=== PATIENT | male | born 1940 | race Caucasian/White ===

== ENCOUNTER → 2020-08-31 | Outpatient (CLI) | payer MEDICARE ==
[2020-08-31 09:49] LABS: HEMATOCRIT 41.7 % (42.0-52.0); HEMOGLOBIN 13.8 g/dl (13.5-17.5); MEAN CORPUSCULAR HEMOGLOBIN 28.6 pg (27.0-33.0); MEAN CORPUSCULAR HGB CONC 33.1 g/dl (32.0-36.5); MEAN CORPUSCULAR VOLUME 86.5 fl (80.0-96.0); PLATELET COUNT, AUTOMATED 230 10^3/uL (150-450); RED BLOOD COUNT 4.82 10^6/uL (4.30-6.10); WHITE BLOOD COUNT 4.8 10^3/uL (4.0-10.0)
[2020-08-31 10:06] LABS: INR 1.11; PROTHROMBIN TIME 14.5 SECONDS (12.5-14.3)
[2020-08-31 10:22] LABS: ERYTHROCYTE SEDIMENTATION RATE 5 mm/hr (0-20)
--- NOTE | 2020-08-31 10:22 | ECGEPIP ---
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
[2020-08-31 10:32] LABS: ALBUMIN 3.8 GM/DL (3.2-5.2); BILIRUBIN,TOTAL 0.7 MG/DL (0.2-1.0); CALCIUM LEVEL 8.6 MG/DL (8.8-10.2); CREATININE FOR GFR 1.42 MG/DL (0.70-1.30); GLOMERULAR FILTRATION RATE 51.3 (>42); POTASSIUM SERUM 4.1 MEQ/L (3.5-5.1)
--- NOTE | 2020-08-31 12:43 | REP ---
INDICATION: LEFT KNEE OSTEOARTHRITIS COMPARISON: None. TECHNIQUE: PA and lateral. FINDINGS: The mediastinum and cardiac silhouette are normal. The lung zee are clear and without acute consolidation, effusion, or pneumothorax. The skeletal structures are intact and normal. IMPRESSION: No acute cardiopulmonary process. <Electronically signed by Josef Martinez > 08/31/20 [id number]
== END ==
LOC: M LAB 08:29
PROVIDERS: ATTEND Orthopaedic Surgery
DX: Z01.818 Encounter for other preprocedural examination (principal); M17.12 Unilateral primary osteoarthritis, left knee

== ENCOUNTER → 2020-09-11 | Outpatient (CLI) ==
[~2020-09-11] MED LIST: CYCL-707 PO; ECOT81TA5 PO; FLOM0.4C39 PO; LISI20TA35 PO; NAPR-885 PO; TRAM50TA2 PO; VITA1CAP25 PO
== END ==
LOC: M LABSMTC 08:28
PROVIDERS: ATTEND Anesthesiology
DX: Z01.818 Encounter for other preprocedural examination (principal); Z20.828 Contact with and (suspected) exposure to other viral communicable diseases

== ENCOUNTER 2020-09-16 06:01 | Inpatient (IN) | payer MEDICARE ==
--- NOTE | 2020-09-14 13:36 | HPE ---
HISTORY AND PHYSICAL DATE OF ADMISSION: 09/16/2020 CHIEF COMPLAINT: Left knee pain. HISTORY OF PRESENT ILLNESS: Darryn is a pleasant 79-year-old male with progressively worsening left knee pain and stiffness. He has failed to improve with conservative treatment. He is elected for surgery for his continued symptoms. He has pain with weightbearing activities and his activities of daily living. X-rays of his knee are notable for advanced osteoarthritis of the left knee joint. He has consented for a left total knee arthroplasty by Dr. Neal Black. Medical optimization was performed by Michelle Stephenson. ALLERGIES: No known allergies. CURRENT MEDICATIONS: 1. Tamsulosin HCL 4 mg at bedtime. 2. Lisinopril once a day. 3. Aspirin 81 mg once a day. 4. Naproxen 500 mg as needed twice a day. 5. Cyclobenzaprine 10 mg as needed two times a day. 6. Vitamin D 1.25 mg once a month. PAST MEDICAL HISTORY: 1. High blood pressure. 2. History of prostate cancer. PAST SURGICAL HISTORY: 1. Cataracts. SOCIAL HISTORY: This gentleman is retired, does not smoke and occasionally drinks alcohol. FAMILY HISTORY: Noncontributory. REVIEW OF SYSTEMS: This patient denies chest pain, heart palpitations, cough, wheezing, difficulty breathing and shortness of breath. He denies abdominal pain, nausea, vomiting, diarrhea or constipation. He denies a recent upper respiratory infection or urinary tract infection symptoms. He does complain of persistent pain in the left knee. PHYSICAL EXAMINATION: GENERAL: He is well-developed, well-nourished in no acute distress alert male. He ambulates with a moderate limp favoring his left lower extremity. He is not using assistive devices. VITAL SIGNS: He is 5 feet and 9 1/2 inches, weighs 232.2 pounds, temperature 97.4, blood pressure 128/78, pulse of 83, respirations are 17. NECK: Supple without adenopathy or jugular venous distention. LUNGS: Clear to auscultation without rales or wheeze. HEART: Regular rate and rhythm. ABDOMEN: Bowel sounds were present. EXTREMITIES: Examination of the knee revealed intact skin. He had decreased range of motion due to pain and stiffness. The limb is neurovascularly intact. LABORATORY DATA: EKG showed sinus rhythm at 83 beats per minute. Chest x-ray showed no acute cardiopulmonary disease processes. Pro-Time was 14.5, INR was 1.11. CBC showed a hematocrit of 41.7, otherwise within normal limits with a sed rate of 5. Glucose 103, BUN 25, creatinine 1.42. Sodium 138, potassium 4.1. IMPRESSION: Symptomatic osteoarthritis of the left knee joint. PLAN: Consented for a left total knee arthroplasty by Dr. Neal Black.
[~2020-09-16] VITALS: Ht 180.3 cm; Wt 103.4 kg
[~2020-09-16 06:01] MED LIST changes: +LR 1,000 ML IV ONE; +ceFAZolin SOD 1 GM in D5W MINI-BAG PLUS 50 ML IV ONE; +ceFAZolin SOD 2 GM in IV 1 EA IV ONE
[2020-09-16] MEDS ORDERED: fentaNYL 100 MCG/2 ML INJECTION (J3010) IV PRN ×2 (07:01→10:00)
[2020-09-16] MEDS ORDERED: MIDAZOLAM INJ 2MG/2ML VIAL (J2250 PER 1MG) IV PRN (07:01)
[2020-09-16] MEDS ORDERED: BUPIVACAINE HCL 0.25% 10ML VIAL As Ordered ONE (07:10)
[2020-09-16] MEDS ORDERED: ceFAZolin 1GM VIAL (J0690 PER 500MG) As Ordered ONE (07:10)
[2020-09-16] MEDS ORDERED: EPINEPHrine INJ 1 MG/ML 1ML AMP As Ordered ONE (07:10)
[2020-09-16] MEDS ORDERED: BUPIVACAINE LIPOSOME/PF 1.3% 20ML VIAL (13.3MG/ML)(EXPAREL)(C9290 PER1MG) As Ordered ONE (07:10)
[2020-09-16] MEDS ORDERED: TRANEXAMIC ACID 100 MG/ML 10ML VIAL As Ordered ONE (07:10)
[2020-09-16] MEDS ORDERED: fentaNYL 100 MCG/2 ML INJECTION (J3010) As Ordered ONE (07:13)
[2020-09-16] MEDS ORDERED: propofoL 500 MG/50 ML VIAL As Ordered ONE (07:13)
[2020-09-16] MEDS ORDERED: ONDANSETRON 4MG/2ML VIAL As Ordered ONE (07:14)
[2020-09-16] MEDS ORDERED: LIDOCAINE 2% 100MG/5ML SDV (FOR ANES.) As Ordered ONE (07:14)
[2020-09-16] MEDS ORDERED: dexameTHASONE 10MG/1ML VIAL PRES.FREE (J1100 PER 1MG) XX ONE (07:30)
[2020-09-16] MEDS ORDERED: EPINEPHrine INJ 1 MG/ML 1ML AMP XX ONE (07:30)
[2020-09-16] MEDS ORDERED: ROPIvacaine 0.5% 30ML INJECTION (J2795 PER 1MG) XX ONE (07:30)
--- NOTE | 2020-09-16 07:56 | IPN ---
PROGRESS NOTE DATE: 09/16/2020 Patient seen and examined. He wishes to go ahead with a left total knee arthroplasty. He was reconsented. He understands the nature of this, the risks of bleeding, infection, damage to nerve, vessels, persistent pain, wear, loosening, blood clots, medical problems, , among others. A preoperative clearance was obtained.
[2020-09-16] MEDS ORDERED: PHENYLephrine HCL 500 MCG/5 ML (100MCG/ML) SYRINGE (J2370) As Ordered ONE ×2 (08:26→08:56)
[2020-09-16] MEDS ORDERED: ePHEDrine SULFATE 25 MG/5 ML(5MG/ML) SYRINGE As Ordered ONE (08:36)
[2020-09-16] MEDS ORDERED: propofoL 200 MG/20 ML VIAL As Ordered ONE ×2 (09:07→11:07)
[2020-09-16] MEDS ORDERED: ACETAMINOPHEN TAB 650MG DOSE (2X325MG) PO PRN (10:00)
[2020-09-16] MEDS ORDERED: MORPHINE 4 MG/ML 1ML VIAL/SYRINGE (J2270) IV PRN (10:00)
[2020-09-16] MEDS ORDERED: oxyCODONE 5MG TAB PO PRN (10:00)
[2020-09-16] MEDS ORDERED: ACETAMINOPHEN 500 MG TAB PO ONE (10:00)
[2020-09-16] MEDS ORDERED: PERCOCET 5MG/325MG TAB PO PRN (10:00)
[2020-09-16] MEDS ORDERED: MORPHINE 2 MG/ML 1ML VIAL (J2270) IV PRN (10:00)
[2020-09-16] MEDS ORDERED: LR 1,000 ML IV SCH ×2 (10:00)
[2020-09-16] MEDS ORDERED: ONDANSETRON 4MG/2ML VIAL IV PRN ×2 (10:00)
--- NOTE | 2020-09-16 10:06 | REP ---
INDICATION: POST OP IN PACU COMPARISON: None. TECHNIQUE: There are two views. FINDINGS: There is a total knee arthroplasty. The components are tightly applied in satisfactory positions and alignment. Skin tram are incidentally noted. IMPRESSION: Negative . <Electronically signed by Dwayne Christie > 09/16/20 1002
[2020-09-16 11:00] VITALS: BP 148/86
[2020-09-16 11:30] VITALS: BP 152/85
[2020-09-16 12:30] VITALS: BP 155/91
[2020-09-16 12:34] LABS: HEMATOCRIT 36.7 % (42.0-52.0); MEAN CORPUSCULAR HEMOGLOBIN 28.6 pg (27.0-33.0); MEAN CORPUSCULAR HGB CONC 32.7 g/dl (32.0-36.5); MEAN CORPUSCULAR VOLUME 87.4 fl (80.0-96.0); PLATELET COUNT, AUTOMATED 190 10^3/uL (150-450); WHITE BLOOD COUNT 5.8 10^3/uL (4.0-10.0)
--- NOTE | 2020-09-16 13:26 | RO ---
OPERATIVE NOTE DATE OF OPERATION: 09/16/2020 PREOPERATIVE DIAGNOSIS: Left knee osteoarthritis. POSTOPERATIVE DIAGNOSIS: Left knee osteoarthritis. PROCEDURE: Left total knee arthroplasty, Attune rotating platform, cruciate retaining, size 7 femur, size 7 tibia, 8 polyethylene, 38 patellar button. SURGEON: Neal Black M.D. BOTTOM PRECIPITATOR OPERATOR: MICHAELA Hdz ANESTHESIA: Spinal. ESTIMATED BLOOD LOSS: 50. COMPLICATIONS: None. PROCEDURE: The patient was taken to the operating room and placed in the supine position after spinal anesthesia was induced. The left lower extremity was prepped and draped in the usual sterile fashion. A timeout was performed and tourniquet was inflated. I then created a longitudinal incision over the anterior aspect of the knee and sharp dissection was carried down through subcutaneous tissue to perform a medial parapatellar arthrotomy per routine and with some difficulty was able to abram the patella. He had significant osteophytes and very hard bone noted. I did a medial release on the proximal tibia. I then used a canal initiating reamer on the femoral side followed by the intramedullary guide set at 5 degrees of valgus and a 9 mm cut. This was pinned in place and a distal femoral cut was made. The soft tissues were protected. I sized the femur to be a 7 and the drill holes were placed in the end of the femur and external rotation dialed in. The cutting block was secured and the remaining cuts were made again with some difficulty due to the very dense bone. I then prepared the tibia. Tibial alignment guide was placed in the appropriate amount of valgus and posterior slope and pinned it 4 mm off the low side which was the medial side and the proximal tibia cut was made protecting soft tissues. I then used a net fisher to remove soft tissue and osteophytes from either side of the knee. I did have to a little bit more medial release to improve the soft tissue balance and then used spacer blocks and was deciding between an 8 and a 10 thickness. The PCL was intact. I then prepared the sulcus cut on the femur with a saw and a guide. I prepared the tibia with a tibial tray size 7, drilled, broached. Trial components were placed. I had removed any remaining osteophytes from around the knee. I put the knee through a range of motion and the size 8 seemed to have excellent stability and alignment, full extension. I had taken an extra 2 mm off the distal femur due to a mild flexion contracture but we were able to get very good range of motion and good, stable knee with good alignment. I then free-hand cut the patella, removing about 7 mm of bone, sized to be a 38. The drill holes were placed. The drill holes placed at the end of the femur. The student assistant prepared the bone cement in modern technique. I removed the trial components, injected some Exparel and Marcaine into the posterior capsule, making sure to withdraw on the syringe so as not to involve the vessel. The remaining Exparel was placed around the knee. The surfaces were copiously irrigated and dried and cemented in the components, removed all excess bone cement, held the patella in place with a patellar clamp. I irrigated again copiously, placed the TXA deep in the wound and then repaired the deep layer with #1 Vicryl in interrupted fashion, running Stratafix suture, obtaining watertight closure. The patella tracked very well. I did do a final deep irrigation prior to final wound closure. The tourniquet was deflated once the cement had hardened. I irrigated, closed the subcu with 2-0 Vicryl and the skin with tram. A sterile dressing was applied. Tourniquet had been deflated. He was taken to the recovery room in stable condition. There were no known complications. The plan will be routine postop. The student assistant was instrumental in holding retractors and assisting in mixing the bone cement and assisting in wound closure.
[2020-09-16 14:30] VITALS: BP 130/72
[2020-09-16] MEDS ORDERED: traMADol 50 MG TAB PO PRN (14:45)
[2020-09-16] MEDS: ACETAMINOPHEN 500 MG TAB PO SCH ×2 (15:22→20:50)
[2020-09-16] MEDS: ceFAZolin SOD 2 GM in IV 1 EA IV SCH ×2 (15:23→23:04)
[2020-09-16 15:30] VITALS: BP 145/84
[2020-09-16 19:51] VITALS: BP 142/83
[2020-09-16] MEDS ORDERED: TAMSULOSIN 0.4 MG CAP PO SCH (21:00)
--- NOTE | 2020-09-16 22:33 | HPEPDOC ---
General Date of Admission Sep 16, 2020 at 06:01 Date of Service: Sep 16, 2020 Chief Complaint The patient is a 79-year-old male admitted with a reason for visit of Left Knee Osteoarthritis. Source: Patient History of Present Illness Consultation report; Consultation requested by orthopedics. Consultation for management of Medical comorbidities. HPI: this is a 79 year ol male admitted for elective left total knee replacement for advanced osteoarthritis. Surgery was uneventful. He is complaining of sharp throbbing ad at eh left knee about 4/10 in intensity, constant in nature with no radiation. He just got a pain med. No other complaints. Home Medications Scheduled Aspirin (Ecotrin) 81 Mg Tablet.dr, 81 MG PO DAILY for pain, (Reported) Cholecalciferol (Vitamin D3) (Vitamin D3) 1,250 Mcg Capsule, 1,250 MCG PO Q MONTH, (Reported) Lisinopril/Hydrochlorothiazide (Lisinopril-Hctz 20-12.5 mg Tab) 1 Each Tablet, 1 TAB PO DAILY, (Reported) Tamsulosin HCl (Flomax) 0.4 Mg Capsule, 0.4 MG PO DAILY, (Reported) Scheduled PRN Cyclobenzaprine HCl (Cyclobenzaprine HCl) 10 Mg Tablet, 10 MG PO BIDP PRN for MUSCLE SPASMS, (Reported) Naproxen (Naproxen) 500 Mg Tablet, 500 MG PO BID PRN for PAIN, (Reported) Tramadol HCl (Tramadol HCl) 50 Mg Tablet, 1 TAB PO TIDP PRN for pain, (Reported) Allergies Coded Allergies: No Known Allergies (Unverified , 09/07/20) Past Medical History Medical History Hypertension H/o Prostate cancer LUTS Obesity Surgical History Cataracts Family History Significant Family History: Cancer Mother and Maternal Aunt from Lung cancer Brother from prostatic cancer Social History * Smoker: Denies Alcohol: rarely Drugs: denies A-FIB/CHADSVASC A-FIB History Current/History of A-Fib/PAF?: No Review of Systems Constitutional: Denies: Chills, Fever, Night Sweats Eyes: Denies: Pain, Vision change ENT: Denies: Head Aches, Ear Pain, Dysphagia Skin: Denies: Rash, Lesions, Breakdown Pulmonary: Denies: Dyspnea, Cough Cardiovascular: Denies: Chest Pain, Palpitations, Orthopnea, Paroxysmal Noc. Dyspnea, Lt Headedness Gastrointestinal: Denies: Nausea, Vomiting, Abdominal Pain, Diarrhea Genitourinary: Reports: Frequency Hematologic: Denies: Bruising, Bleeding Excessively Musculoskeletal: Reports: Joint Pain Neurological: Denies: Weakness, Numbness, Change in speech, Confusion Physical Examination General Exam: Positive: Alert, Cooperative, No Acute Distress Eye Exam: Positive: PERRLA, Conjunctiva & lids normal, EOMI; Negative: Sclera icteric ENT Exam: Positive: Atraumatic, Mucous membr. moist/pink, Pharynx Normal Neck Exam: Positive: Supple; Negative: JVD, thyromegaly Chest Exam: Positive: Clear to auscultation, Normal air movement Heart Exam: Positive: Rate Normal, Regular Rhythm, Normal S1, Normal S2; Negative: Murmurs, Rubs Abdomen Exam: Positive: Normal bowel sounds, Soft; Negative: Tenderness, Hepatospenomegaly Extremity Exam: Positive: Normal pulses; Negative: Clubbing, Cyanosis, Edema Skin Exam: Positive: Nl turgor and temperature; Negative: Breakdown, Lesion Vital Signs Vital Signs Date Time Temp Pulse Resp B/P (MAP) Pulse Ox O2 Delivery O2 Flow Rate FiO2 09/16/20 10:15 96.8 69 18 133/71 (91) 99 Room Air 09/16/20 07:30 3 Assessment/Plan This is a 79 year ol male admitted for elective left total knee replacement for advanced osteoarthritis. S/p left total knee replacement for OA pain control and dvt prophylaxis as per ortho Hypertension will hold lisinopril/ HCTZ today start tomorrow if needed will give amlodipine. H/o Prostate cancer with LUTs continue flomax. Plan / VTE VTE Prophylaxis Ordered?: Yes CANDACE MCCLELLAND MD Sep 16, 2020 10:51
[2020-09-17 01:50] VITALS: BP 107/58
[2020-09-17] MEDS: ACETAMINOPHEN 500 MG TAB PO SCH ×2 (02:45→09:17)
[2020-09-17] MEDS: traMADol 50 MG TAB PO PRN ×2 (03:17→09:18)
[2020-09-17 05:23] VITALS: BP 120/65
[2020-09-17] MEDS ORDERED: TRAM50TA2 PO (06:42)
[2020-09-17] MEDS ORDERED: ACET-683 PO (06:42)
[2020-09-17] MEDS ORDERED: XARE10TA PO (06:42)
[2020-09-17 08:03] LABS: BLOOD UREA NITROGEN 12 MG/DL (7-18); CALCIUM LEVEL 8.7 MG/DL (8.8-10.2); CARBON DIOXIDE LEVEL 27 MEQ/L (21-32); CHLORIDE LEVEL 105 MEQ/L (98-107); GLOMERULAR FILTRATION RATE > 60.0 (>42); GLUCOSE, FASTING 109 MG/DL (70-100); SODIUM LEVEL 137 MEQ/L (136-145)
[2020-09-17] MEDS ORDERED: MOM 30ML SUSPENSION UDC PO SCH (09:00)
[2020-09-17] MEDS ORDERED: MIRALAX *UNIT DOSE* 17GM PACKET PO SCH (09:00)
[2020-09-17] MEDS ORDERED: PREVNAR 13 VACCINE SYRINGE IM ONE (09:00)
--- NOTE | 2020-09-17 15:37 | IPNPDOC ---
Subjective Date Seen The patient was seen on 09/17/20. Subjective Chief Complaint/HPI No complaints this morning except for appropriate pain at the surgical knee controlled with current pain regimen. Working with PT. Objective Physical Examination General Exam: Positive: Alert, Cooperative, No Acute Distress Eye Exam: Positive: PERRLA, Conjunctiva & lids normal, EOMI; Negative: Sclera icteric ENT Exam: Positive: Atraumatic, Mucous membr. moist/pink, Pharynx Normal Neck Exam: Positive: Supple; Negative: JVD, thyromegaly Chest Exam: Positive: Clear to auscultation, Normal air movement Heart Exam: Positive: Rate Normal, Regular Rhythm, Normal S1, Normal S2; Negative: Murmurs, Rubs Abdomen Exam: Positive: Normal bowel sounds, Soft; Negative: Tenderness, Hepatospenomegaly Extremity Exam: Positive: Normal pulses; Negative: Clubbing, Cyanosis, Edema Skin Exam: Positive: Nl turgor and temperature; Negative: Breakdown, Lesion Assessment /Plan Assessment This is a 79 year ol male admitted for elective left total knee replacement for advanced osteoarthritis. S/p left total knee replacement for OA pain control and dvt prophylaxis as per ortho Hypertension resume lisinopril/ HCTZ on discharge H/o Prostate cancer with LUTs continue flomax. Plan/VTE VTE Prophylaxis Ordered?: Yes VS, I&O, 24H, Fishbone Vital Signs/I&O Vital Signs Date Time Temp Pulse Resp B/P (MAP) Pulse Ox O2 Delivery O2 Flow Rate FiO2 09/17/20 09:48 19 09/17/20 05:23 98.9 81 120/65 (83) 96 Room Air 09/16/20 07:30 3 I&O- Last 24 Hours up to 6 AM 09/17/20 05:59 Intake Total 2580 ml Output Total 775 ml Balance 1805 ml Laboratory Data 24H LABS Laboratory Tests 2 09/17/20 07:02: Anion Gap 5L, Glomerular Filtration Rate > 60.0, Calcium Level 8.7L CBC/BMP Laboratory Tests 09/17/20 07:02 CANDACE MCCLELLAND MD Sep 17, 2020 15:37
[2020-09-17] MEDS ORDERED: RIVAROXABAN 10 MG TAB (XARELTO) PO SCH (18:00)
--- NOTE | 2020-09-19 16:41 | DSES ---
DISCHARGE SUMMARY DATE OF ADMISSION: 09/16/2020 DATE OF DISCHARGE: 09/17/2020 ADMITTING DIAGNOSIS: Osteoarthritis, left knee. OTHER DIAGNOSES: 1. Hypertension. 2. Obesity. 3. History of prostate cancer. DISCHARGE DIAGNOSIS: Osteoarthritis left knee, status post left total knee arthroplasty. OPERATIVE PROCEDURE: Left total knee arthroplasty. HISTORY: This is a 79-year-old male patient with progressively worsening left knee pain and stiffness. He failed to improve with conservative management. He was admitted for elective knee replacement on the left side. HOSPITAL COURSE: The patient was admitted on the day of surgery and underwent a left total knee arthroplasty, which was uneventful. He did well in the postoperative period. His hospital course was without complications. He was up with physical therapy per the protocol and his pain was controlled. On the day of discharge, he was weightbearing as tolerated on his left lower extremity. DISCHARGE INSTRUCTIONS: He will use Xarelto 10 mg per the protocol for DVT prophylaxis. He will also resume his preoperative medications and diet. He will use JANEL stockings for 30 days postoperative for DVT prophylaxis as well. He will use oral pain medications for pain control. He will follow-up in our office in 10-14 days for surgical follow-up. He was given instructions to include, but not limited to wound monitoring and activity limitations.
== END 2020-09-17 11:31 | disposition home or self-care (01) | DRG 470 ==
LOC: M OR 06:01 → M MS5PR 10:55
PROVIDERS: ADMIT Orthopaedic Surgery; ATTEND Orthopaedic Surgery
PROC: 0SRD0J9 Replacement of Left Knee Joint with Synthetic Substitute, Cemented, Open Approach (ICD-10-PCS; principal; 2020-09-16 07:30)
DX: M17.12 Unilateral primary osteoarthritis, left knee (principal); R26.89 Other abnormalities of gait and mobility; I10 Essential (primary) hypertension; E66.9 Obesity, unspecified; Z79.82 Long term (current) use of aspirin; Z79.899 Other long term (current) drug therapy; Z98.49 Cataract extraction status, unspecified eye; Z85.46 Personal history of malignant neoplasm of prostate; Z68.34 Body mass index [BMI] 34.0-34.9, adult

== ENCOUNTER → 2021-05-26 | Outpatient (CLI) | payer MEDICARE ==
[~2021-05-26] MED LIST changes: +ACET-683 PO; +ISOVUE-300 61% 50ML VIAL As Ordered ONE; +LIDOCAINE 1% MDV 20ML VIAL As Ordered ONE; -LR 1,000 ML IV ONE; +XARE10TA PO; -ceFAZolin SOD 1 GM in D5W MINI-BAG PLUS 50 ML IV ONE; -ceFAZolin SOD 2 GM in IV 1 EA IV ONE; +methylPREDNISolone SUSP 40MG/ML 1ML VIAL (DEPO MEDROL) As Ordered ONE
--- NOTE | 2021-05-26 16:28 | REP ---
INDICATION: EPTER HIP OA RT HIP. COMPARISON: None TECHNIQUE: The procedure was performed by ADRI Gandara, under the direct supervision of Dr. Hernandez. The benefits and risks of the procedure were explained to the patient, and an informed consent was obtained. Directly prior to the start of the procedure, a formal time-out was completed in the procedure room. The right femoral neck joint space was localized using fluoroscopic guidance. The skin was prepped and draped in a sterile fashion. Approximately 5 mL of 1% Lidocaine 10 mg/ml was used as a local anesthetic. Using fluoroscopic guidance, a #22 gauge spinal needle was inserted and advanced into the right femoral neck joint space. Approximately 1 mL of Isovue 300 was injected to verify placement. Seven mL of a solution containing 5 mL 1% lidocaine 10 mg/ml and 2 mL Depo-Medrol 40 milligrams/milliliter was injected into the joint space. The needle was removed and hemostasis was achieved. FINDINGS: The patient tolerated the procedure well and there were no immediate complications. IMPRESSION: 1. Fluoroscopically guided right hip pain injection. 0.1 minutes of fluoroscopy time was utilized for this procedure. Some fluoroscopic images are performed with last image hold technology. These images require no additional radiation. <Electronically signed by Rosina Tobar > 05/26/21 1517 <Electronically signed by Derrek Hernandez > 05/26/21 [id number]
== END ==
LOC: M RADPRO 12:48
PROVIDERS: ATTEND Physician Assistant
DX: M16.0 Bilateral primary osteoarthritis of hip (principal)
CPT/HCPCS: 20610; 77002; J1030; Q9967

== ENCOUNTER → 2021-05-26 | Outpatient (CLI) | payer MEDICARE ==
[~2021-05-26] MED LIST changes: -ISOVUE-300 61% 50ML VIAL As Ordered ONE; -LIDOCAINE 1% MDV 20ML VIAL As Ordered ONE; -methylPREDNISolone SUSP 40MG/ML 1ML VIAL (DEPO MEDROL) As Ordered ONE
--- NOTE | 2021-05-27 13:05 | REPVR ---
PROCEDURE INFORMATION: Exam: MR Lumbar Spine Without Contrast Exam date and time: 05/26/2021 12:07 PM Age: 80 years old Clinical indication: Low back pain. TECHNIQUE: Imaging protocol: Multiplanar magnetic resonance images of the lumbar spine without intravenous contrast. COMPARISON: DX L-SPINE - OUTSIDE PRIOR 03/20/2021 10:21 AM FINDINGS: Vertebrae: See "Sacrum/coccyx" finding. Spinal cord: Normal signal. T11-T12: There is disc desiccation. There is a small central disc protrusion. There is mild moderate spinal canal stenosis, not fully characterized on this exam. T12-L1: There is disc space narrowing and desiccation. There are moderate degenerative end plate changes at this level. There is a moderate disc/osteophyte complex that flattens the ventral thecal sac. There is a superimposed left foraminal disc herniation. There is moderate bilateral neural foraminal narrowing, left worse than right. There is facet arthropathy and ligamentum flavum hypertrophy. There is moderate spinal canal stenosis. L1-L2: There is degenerative disc disease including disc space narrowing and dessication. There is a moderate disc/osteophyte complex that flattens the ventral thecal sac. There is moderate bilateral neural foraminal narrowing, right worse than left. There is compromise of the lateral recesses bilaterally. There is exuberant bilateral facet arthropathy and ligamentum flavum hypertrophy. There is moderate/severe spinal canal stenosis. L2-L3: There is disc space narrowing and desiccation. There are moderate degenerative end plate changes at this level. There is a moderate disc/osteophyte complex that flattens the ventral thecal sac. There is a superimposed right foraminal disc herniation. There is moderate/severe bilateral neural foraminal narrowing, right worse than left. There is exuberant bilateral facet arthropathy and ligamentum flavum hypertrophy. There is moderate/severe spinal canal stenosis. L3-L4: There is degenerative disc disease including disc space narrowing and dessication. There is a moderate disc/osteophyte complex that flattens the ventral thecal sac. There is a superimposed right foraminal disc herniation. There is severe bilateral neural foraminal narrowing. There is exuberant bilateral facet arthropathy and ligamentum flavum hypertrophy. There is severe spinal canal stenosis. There is bunching up of the cauda equina nerve roots above this level indicating the severe nature of the stenosis. L4-L5: There is grade 1 anterior spondylolisthesis at this level. There is disc space narrowing and desiccation. There are moderate degenerative end plate changes at this level. Disc bulging extends into both neural foramen causing moderate bilateral neural foraminal narrowing. There is exuberant bilateral facet arthropathy and ligamentum flavum hypertrophy. There is severe spinal canal stenosis. L5-S1: There is disc space narrowing and desiccation. There are moderate degenerative end plate changes at this level. There is facet arthropathy and ligamentum flavum hypertrophy. There is moderate spinal canal stenosis. Sacrum/coccyx: There is a transitional lumbosacral segment. 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 Correlation with plain films prior to any future lumbar procedure is recommended to confirm accurate numbering of the lumbar spine. Soft tissues: Unremarkable. Other findings: There is congenital spinal canal stenosis which is exacerbated by multilevel degenerative changes. There are degenerative changes including disc herniations involving the lower thoracic spine, not fully characterized on this exam. IMPRESSION: 1. 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 Severe spinal canal stenosis at L3/4 and L4/5. Moderate/severe spinal canal stenosis at L1/2 and L1/2. Please correlate with any symptoms referrable to cauda equina syndrome. Neurosurgical consultation is recommended. 2. There is a transitional lumbosacral segment. 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 Correlation with plain films prior to any future lumbar procedure is recommended to confirm accurate numbering of the lumbar spine. 3. There are degenerative changes including disc herniations involving the lower thoracic spine, not fully characterized on this exam. Follow-up MRI of the thoracic spine is recommended. Electronically signed by: Jarrett Cristina On 05/27/2021 13:05:15 PM
== END ==
LOC: M PLAIMG 10:59
PROVIDERS: ATTEND Physician Assistant
DX: M51.36 Other intervertebral disc degeneration, lumbar region (principal); M48.061 Spinal stenosis, lumbar region without neurogenic claudication

== ENCOUNTER → 2021-07-19 | Outpatient (CLI) | payer MEDICARE ==
[~2021-07-19] MED LIST changes: +ISOVUE-300 61% 50ML VIAL As Ordered ONE; +LIDOCAINE 1% MDV 20ML VIAL As Ordered ONE; +methylPREDNISolone SUSP 40MG/ML 1ML VIAL (DEPO MEDROL) As Ordered ONE
--- NOTE | 2021-07-19 13:38 | REP ---
INDICATION: LT HIP PAIN OA OF HIP. COMPARISON: None TECHNIQUE: The procedure was performed by ADRI Dobbins, under the direct supervision of Dr. Brooks. The benefits and risks of the procedure were explained to the patient, and an informed consent was obtained. Directly prior to the start of the procedure, a formal time-out was completed in the procedure room. The left hip joint space was localized using fluoroscopic guidance. The skin was prepped and draped in a sterile fashion. Approximately 5 mL of 1% Lidocaine 10 mg/ml was used as a local anesthetic. Using fluoroscopic guidance, a #22 gauge spinal needle was inserted and advanced into the left hip joint space. Approximately 2 mL of Isovue 300 was injected to verify placement. Seven mL of a solution containing 5 mL 1% lidocaine 10 mg/ml and 2 mL Depo-Medrol 40 mg was injected into the joint space. The needle was removed and hemostasis was achieved. FINDINGS: The patient tolerated the procedure well and there were no immediate complications. IMPRESSION: 1. Technically successful left hip arthrogram. 0.2 minutes of fluoroscopy time was utilized for this procedure. Some fluoroscopic images are performed with last image hold technology. These images require no additional radiation. <Electronically signed by Rianna Márquez > 07/19/21 131 <Electronically signed by Dwayne Brooks > 07/19/21 [id number]
== END ==
LOC: M RADPRO 12:30
PROVIDERS: ATTEND Physician Assistant
DX: M16.0 Bilateral primary osteoarthritis of hip (principal)
CPT/HCPCS: 20610; 77002; J1030; Q9967

== ENCOUNTER → 2021-12-11 | Outpatient (REF) | payer MEDICARE ==
[~2021-12-11] MED LIST changes: -ISOVUE-300 61% 50ML VIAL As Ordered ONE; -LIDOCAINE 1% MDV 20ML VIAL As Ordered ONE; -methylPREDNISolone SUSP 40MG/ML 1ML VIAL (DEPO MEDROL) As Ordered ONE
[2021-12-11 18:01] LABS: APPEARANCE, URINE CLEAR (CLEAR); BACTERIA, URINE AUTO NEGATIVE (NEGATIVE); BILIRUBIN, URINE AUTO NEGATIVE (NEGATIVE); BLOOD, URINE BLOOD NEGATIVE (NEGATIVE); COLOR, URINE STRAW (YELLOW); GLUCOSE, URINE (UA) AUTO NEGATIVE (NEGATIVE); KETONE, URINE AUTO NEGATIVE (NEGATIVE); LEUKOCYTE ESTERASE, URINE AUTO NEGATIVE (NEGATIVE); MUCUS, URINE SMALL (NEGATIVE); NITRITE, URINE AUTO NEGATIVE (NEGATIVE); PROTEIN, URINE AUTO NEGATIVE (NEGATIVE); RBC, URINE AUTO 0 /HPF (0-3); SPECIFIC GRAVITY URINE AUTO 1.003 (1.002-1.035); SQUAMOUS EPITHELIAL CELL UR AU 0 /HPF (0-6); UROBILINOGEN, URINE AUTO 0.2 mg/dL (0.0-2.0); WBC, URINE AUTO 0 /HPF (0-3)
== END ==
LOC: M SMT 16:35
PROVIDERS: ATTEND Nurse Practitioner Women's Health
DX: R39.11 Hesitancy of micturition (principal)

== ENCOUNTER → 2022-12-12 | Outpatient (CLI) | payer MEDICARE ==
[~2022-12-12] MED LIST changes: +**SFHN** LIDOCAINE 1% MDV 20ML VIAL ONE; +**SFHN** TRIAMCINOLONE ACETONIDE SUSP 40 MG/ML 1ML VIAL ONE; +ISOVUE-300 61% 100ML VIAL ONE
== END ==
LOC: M PLAIMG 15:35
PROVIDERS: ATTEND Orthopaedic Surgery
DX: M16.11 Unilateral primary osteoarthritis, right hip (principal)
CPT/HCPCS: 20610; 77002; Q9967

== ENCOUNTER → 2023-01-02 | Outpatient (CLI) | payer MEDICARE ==
[~2023-01-02] MED LIST changes: -**SFHN** LIDOCAINE 1% MDV 20ML VIAL ONE; -**SFHN** TRIAMCINOLONE ACETONIDE SUSP 40 MG/ML 1ML VIAL ONE; +ISOVUE-300 61% 100ML VIAL As Ordered ONE; -ISOVUE-300 61% 100ML VIAL ONE; +LIDOCAINE 1% MDV 20ML VIAL As Ordered ONE; +TRIAMCINOLONE ACETONIDE SUSP 40MG/ML 1ML VIAL As Ordered ONE
== END ==
LOC: M RAD 14:30
PROVIDERS: ATTEND Orthopaedic Surgery
DX: M16.12 Unilateral primary osteoarthritis, left hip (principal)
CPT/HCPCS: 20610; 77002; J3301; Q9967

== ENCOUNTER → 2023-01-02 | Outpatient (CLI) | payer MEDICARE ==
[~2023-01-02] MED LIST changes: -ISOVUE-300 61% 100ML VIAL As Ordered ONE; -LIDOCAINE 1% MDV 20ML VIAL As Ordered ONE; -TRIAMCINOLONE ACETONIDE SUSP 40MG/ML 1ML VIAL As Ordered ONE
== END ==
LOC: M PLAIMG 14:07
PROVIDERS: ATTEND Orthopaedic Surgery
DX: M16.0 Bilateral primary osteoarthritis of hip (principal)

== ENCOUNTER → 2023-10-15 | Outpatient (CLI) | payer MEDICARE ==
[~2023-10-15] MED LIST changes: +ELIQ5TAB; +MELA5CAP2 PO; +OXYC-517; +TIZA10TA; +VITMTA PO
== END ==
LOC: M ONCM 08:26
PROVIDERS: ATTEND Dietitian, Registered
DX: C18.9 Malignant neoplasm of colon, unspecified (principal); Z68.26 Body mass index [BMI] 26.0-26.9, adult; Z71.3 Dietary counseling and surveillance; Z85.46 Personal history of malignant neoplasm of prostate; Z93.3 Colostomy status

== ENCOUNTER → 2023-10-21 | Outpatient (CLI) | payer MEDICARE | LOC: M RAD 09:54 | PROVIDERS: ATTEND Specialist | DX: C18.7 Malignant neoplasm of sigmoid colon (principal); C78.7 Secondary malignant neoplasm of liver and intrahepatic bile duct; M54.50 Low back pain, unspecified; Z96.642 Presence of left artificial hip joint; Z96.652 Presence of left artificial knee joint | CPT/HCPCS: 78306; A9503 ==

== ENCOUNTER → 2023-10-29 | Outpatient (CLI) | payer MEDICARE ==
[~2023-10-29] VITALS: Ht 177.8 cm; Wt 79.0 kg
[~2023-10-29] MED LIST changes: +MORP15TA2 PO; +NARC1SPR NARES; +ONDA-83 PO; +THERTAB52 PO
[2023-10-29 10:35] VITALS: BP 134/70; O2SAT 99
== END ==
LOC: M PAL 09:50
PROVIDERS: ATTEND Nurse Practitioner Adult Health
DX: C18.7 Malignant neoplasm of sigmoid colon (principal); C78.7 Secondary malignant neoplasm of liver and intrahepatic bile duct; R53.81 Other malaise; R11.0 Nausea; M54.50 Low back pain, unspecified; M25.551 Pain in right hip; F17.220 Nicotine dependence, chewing tobacco, uncomplicated; Z86.711 Personal history of pulmonary embolism; Z85.46 Personal history of malignant neoplasm of prostate; Z51.5 Encounter for palliative care; Z93.3 Colostomy status; Z79.891 Long term (current) use of opiate analgesic; Z79.01 Long term (current) use of anticoagulants; Z66 Do not resuscitate; Z79.899 Other long term (current) drug therapy; Z96.652 Presence of left artificial knee joint; Z96.642 Presence of left artificial hip joint

== ENCOUNTER → 2023-11-12 | Outpatient (CLI) | payer MEDICARE ==
[~2023-11-12] VITALS: Ht 177.8 cm; Wt 76.1 kg
[~2023-11-12] MED LIST changes: +MIRA3350 PO; +MORP-69 PO; +SENN-186 PO
[2023-11-12 11:35] VITALS: BP 128/68; O2SAT 100
== END ==
LOC: M PAL 11:23
PROVIDERS: ATTEND Nurse Practitioner Adult Health
DX: C18.7 Malignant neoplasm of sigmoid colon (principal); C78.7 Secondary malignant neoplasm of liver and intrahepatic bile duct; L89.891 Pressure ulcer of other site, stage 1; R53.81 Other malaise; R11.0 Nausea; M54.50 Low back pain, unspecified; M25.551 Pain in right hip; F17.220 Nicotine dependence, chewing tobacco, uncomplicated; Z51.5 Encounter for palliative care; Z66 Do not resuscitate; Z79.01 Long term (current) use of anticoagulants; Z79.891 Long term (current) use of opiate analgesic; Z79.899 Other long term (current) drug therapy; Z85.46 Personal history of malignant neoplasm of prostate; Z86.711 Personal history of pulmonary embolism; Z92.3 Personal history of irradiation; Z93.3 Colostomy status; Z96.652 Presence of left artificial knee joint; Z96.642 Presence of left artificial hip joint

== ENCOUNTER → 2023-11-15 | Outpatient (CLI) | payer MEDICARE ==
[~2023-11-15] VITALS: Ht 177.8 cm; Wt 76.0 kg
[~2023-11-15] MED LIST changes: +LIDOCAINE 1% MDV 20ML VIAL As Ordered ONE; +LIDOCAINE W/EPINEPHRINE 1% 20ML VIAL As Ordered ONE; +MIDAZOLAM INJ 2MG/2ML VIAL As Ordered ONE; -TIZA10TA; +TIZA10TA PO; +fentaNYL 100 MCG/2 ML INJECTION As Ordered ONE
[2023-11-15 12:20] VITALS: TEMP 100
[2023-11-15] MEDS: ceFAZolin SOD 2 GM in IV 1 EA IV ONE (13:11)
[2023-11-15] MEDS: NS 1,000 ML IV SCH (13:11)
[2023-11-15 14:35] VITALS: BP 134/66; O2SAT 97
== END ==
LOC: M IRPRO 11:59
PROVIDERS: ATTEND Specialist
DX: C18.9 Malignant neoplasm of colon, unspecified (principal)
CPT/HCPCS: 36561; 99152; 99153; J0690; J2250; J3010

== ENCOUNTER → 2023-11-22 | Outpatient (CLI) | payer MEDICARE ==
[~2023-11-22] MED LIST changes: +GASTROGRAFIN SOLUTION 30ML As Ordered ONE; +ISOVUE-370 76% 100ML VIAL As Ordered ONE; -LIDOCAINE 1% MDV 20ML VIAL As Ordered ONE; -LIDOCAINE W/EPINEPHRINE 1% 20ML VIAL As Ordered ONE; -MIDAZOLAM INJ 2MG/2ML VIAL As Ordered ONE; -fentaNYL 100 MCG/2 ML INJECTION As Ordered ONE
== END ==
LOC: M RAD 12:49
PROVIDERS: ATTEND Internal Medicine Hematology & Oncology
DX: C18.9 Malignant neoplasm of colon, unspecified (principal); C78.7 Secondary malignant neoplasm of liver and intrahepatic bile duct; K80.20 Calculus of gallbladder without cholecystitis without obstruction; N20.0 Calculus of kidney; Z93.3 Colostomy status; K40.20 Bilateral inguinal hernia, without obstruction or gangrene, not specified as recurrent; E27.8 Other specified disorders of adrenal gland; Z95.828 Presence of other vascular implants and grafts; I25.10 Atherosclerotic heart disease of native coronary artery without angina pectoris; C78.01 Secondary malignant neoplasm of right lung; C78.02 Secondary malignant neoplasm of left lung; J98.11 Atelectasis
CPT/HCPCS: 71260; 74177; Q9963; Q9967

== ENCOUNTER → 2023-12-11 | Outpatient (CLI) | payer MEDICARE ==
[~2023-12-11] VITALS: Ht 177.8 cm; Wt 73.3 kg
[~2023-12-11] MED LIST changes: +B-COTAB10 PO; +BENA25CA4 PO; -GASTROGRAFIN SOLUTION 30ML As Ordered ONE; -ISOVUE-370 76% 100ML VIAL As Ordered ONE; +MORP30TASA PO; +PREG25CA PO
[2023-12-11 11:48] VITALS: BP 108/64; O2SAT 100
== END ==
LOC: M PAL 11:41
PROVIDERS: ATTEND Nurse Practitioner Adult Health
DX: G89.4 Chronic pain syndrome (principal); M25.551 Pain in right hip; M54.50 Low back pain, unspecified; C18.7 Malignant neoplasm of sigmoid colon; C78.7 Secondary malignant neoplasm of liver and intrahepatic bile duct; L89.891 Pressure ulcer of other site, stage 1; R53.81 Other malaise; R11.0 Nausea; F17.220 Nicotine dependence, chewing tobacco, uncomplicated; Z51.5 Encounter for palliative care; Z66 Do not resuscitate; Z79.01 Long term (current) use of anticoagulants; Z79.891 Long term (current) use of opiate analgesic; Z79.899 Other long term (current) drug therapy; Z85.46 Personal history of malignant neoplasm of prostate; Z86.711 Personal history of pulmonary embolism; Z92.3 Personal history of irradiation; Z93.3 Colostomy status; Z96.652 Presence of left artificial knee joint; Z96.642 Presence of left artificial hip joint; Z99.3 Dependence on wheelchair

== ENCOUNTER → 2024-01-09 | Outpatient (CLI) | payer MEDICARE ==
[~2024-01-09] MED LIST changes: +BACT800T5 PO; +DORZ2SOL5; +OMEP10CA PO
== END ==
LOC: M LAB 11:36
PROVIDERS: ATTEND Urology
DX: C61 Malignant neoplasm of prostate (principal)

== ENCOUNTER → 2024-01-15 | Outpatient (CLI) | payer MEDICARE ==
[~2024-01-15] VITALS: Ht 177.8 cm; Wt 71.5 kg
[~2024-01-15] MED LIST changes: -DORZ2SOL5; +DORZ2SOL5 OD; +FINA5TAB2 PO
[2024-01-15 10:37] VITALS: BP 110/65; O2SAT 99
== END ==
LOC: M PAL 10:10
PROVIDERS: ATTEND Nurse Practitioner Adult Health
DX: G89.4 Chronic pain syndrome (principal); M25.551 Pain in right hip; M54.50 Low back pain, unspecified; C18.7 Malignant neoplasm of sigmoid colon; C78.7 Secondary malignant neoplasm of liver and intrahepatic bile duct; L89.891 Pressure ulcer of other site, stage 1; R53.81 Other malaise; R11.0 Nausea; Z66 Do not resuscitate; Z51.5 Encounter for palliative care; Z79.01 Long term (current) use of anticoagulants; Z79.891 Long term (current) use of opiate analgesic; Z79.899 Other long term (current) drug therapy; Z85.46 Personal history of malignant neoplasm of prostate; Z86.711 Personal history of pulmonary embolism; Z92.3 Personal history of irradiation; Z93.3 Colostomy status; Z96.652 Presence of left artificial knee joint; Z96.642 Presence of left artificial hip joint; F17.220 Nicotine dependence, chewing tobacco, uncomplicated

== ENCOUNTER → 2024-02-27 | Outpatient (CLI) | payer MEDICARE ==
[~2024-02-27] MED LIST changes: +GASTROGRAFIN SOLUTION 30ML As Ordered ONE; +ISOVUE-370 76% 100ML VIAL As Ordered ONE
== END ==
LOC: M RAD 14:24
PROVIDERS: ATTEND Internal Medicine Medical Oncology
DX: C18.9 Malignant neoplasm of colon, unspecified (principal); K76.89 Other specified diseases of liver
CPT/HCPCS: 71260; 74177; Q9963; Q9967

== ENCOUNTER → 2024-04-09 | Outpatient (CLI) | payer MEDICARE ==
[~2024-04-09] VITALS: Ht 177.8 cm; Wt 68.8 kg
[~2024-04-09] MED LIST changes: -GASTROGRAFIN SOLUTION 30ML As Ordered ONE; -ISOVUE-370 76% 100ML VIAL As Ordered ONE; +LOMO2.5T PO; +MAGICMW SSP; +POTA-151 PO
[2024-04-09 14:07] VITALS: BP 134/77; O2SAT 100
== END ==
LOC: M PAL 13:53
PROVIDERS: ATTEND Nurse Practitioner Adult Health
DX: C18.7 Malignant neoplasm of sigmoid colon (principal); C78.7 Secondary malignant neoplasm of liver and intrahepatic bile duct; G89.4 Chronic pain syndrome; M25.551 Pain in right hip; M54.50 Low back pain, unspecified; L89.891 Pressure ulcer of other site, stage 1; R53.81 Other malaise; F17.220 Nicotine dependence, chewing tobacco, uncomplicated; Z51.5 Encounter for palliative care; Z66 Do not resuscitate; Z79.01 Long term (current) use of anticoagulants; Z79.891 Long term (current) use of opiate analgesic; Z79.899 Other long term (current) drug therapy; Z85.46 Personal history of malignant neoplasm of prostate; Z86.711 Personal history of pulmonary embolism; Z92.3 Personal history of irradiation; Z93.3 Colostomy status; Z96.652 Presence of left artificial knee joint; Z96.642 Presence of left artificial hip joint

== ENCOUNTER → 2024-05-21 | Outpatient (CLI) | payer MEDICARE ==
[~2024-05-21] VITALS: Ht 177.8 cm; Wt 68.7 kg
[~2024-05-21] MED LIST changes: +BRIM0.2S13; +MAGN400T2 PO; +MICO2CRE42 TOP; +POTA-298 PO
[2024-05-21 14:17] VITALS: BP 112/73; O2SAT 98
== END ==
LOC: M PAL 13:45
PROVIDERS: ATTEND Nurse Practitioner Adult Health
DX: G89.4 Chronic pain syndrome (principal); C18.7 Malignant neoplasm of sigmoid colon; L89.891 Pressure ulcer of other site, stage 1; K12.1 Other forms of stomatitis; M25.551 Pain in right hip; M54.50 Low back pain, unspecified; R11.0 Nausea; R53.81 Other malaise; F17.220 Nicotine dependence, chewing tobacco, uncomplicated; Z51.5 Encounter for palliative care; Z66 Do not resuscitate; Z79.01 Long term (current) use of anticoagulants; Z79.891 Long term (current) use of opiate analgesic; Z79.899 Other long term (current) drug therapy; Z85.46 Personal history of malignant neoplasm of prostate; Z86.711 Personal history of pulmonary embolism; Z92.3 Personal history of irradiation; Z93.3 Colostomy status; Z96.652 Presence of left artificial knee joint; Z96.642 Presence of left artificial hip joint

== ENCOUNTER → 2024-06-15 | Outpatient (CLI) | payer MEDICARE ==
[~2024-06-15] MED LIST changes: +GASTROGRAFIN SOLUTION 30ML As Ordered ONE; +ISOVUE-370 76% 100ML VIAL As Ordered ONE
== END ==
LOC: M RAD 13:37
PROVIDERS: ATTEND Internal Medicine Hematology & Oncology
DX: D50.9 Iron deficiency anemia, unspecified (principal); C78.7 Secondary malignant neoplasm of liver and intrahepatic bile duct; N28.1 Cyst of kidney, acquired; N20.0 Calculus of kidney; K43.9 Ventral hernia without obstruction or gangrene; K43.5 Parastomal hernia without obstruction or gangrene; J47.9 Bronchiectasis, uncomplicated; C78.01 Secondary malignant neoplasm of right lung; I25.10 Atherosclerotic heart disease of native coronary artery without angina pectoris
CPT/HCPCS: 71260; 74177; J1642; Q9963; Q9967

== ENCOUNTER → 2024-07-23 | Outpatient (CLI) | payer MEDICARE ==
[~2024-07-23] VITALS: Ht 177.8 cm; Wt 68.9 kg
[~2024-07-23] MED LIST changes: +BRAF75CA PO; -BRIM0.2S13; +BRIM0.2S13 OD; -GASTROGRAFIN SOLUTION 30ML As Ordered ONE; -ISOVUE-370 76% 100ML VIAL As Ordered ONE; +XALA0.007 OU
[2024-07-23 13:13] VITALS: BP 98/58; O2SAT 99
== END ==
LOC: M PAL 13:01
PROVIDERS: ATTEND Nurse Practitioner Adult Health
DX: G89.4 Chronic pain syndrome (principal); C18.7 Malignant neoplasm of sigmoid colon; M25.551 Pain in right hip; M54.50 Low back pain, unspecified; R11.0 Nausea; R53.81 Other malaise; F17.220 Nicotine dependence, chewing tobacco, uncomplicated; Z51.5 Encounter for palliative care; Z66 Do not resuscitate; Z79.01 Long term (current) use of anticoagulants; Z79.891 Long term (current) use of opiate analgesic; Z79.899 Other long term (current) drug therapy; Z85.46 Personal history of malignant neoplasm of prostate; Z86.711 Personal history of pulmonary embolism; Z92.3 Personal history of irradiation; Z93.3 Colostomy status; Z96.652 Presence of left artificial knee joint; Z96.642 Presence of left artificial hip joint

== ENCOUNTER → 2024-08-20 | Outpatient (CLI) | payer MEDICARE ==
[~2024-08-20] VITALS: Ht 177.8 cm; Wt 74.0 kg
[~2024-08-20] MED LIST changes: +PROC10TA5 PO
[2024-08-20 13:12] VITALS: BP 104/62; O2SAT 100
== END ==
LOC: M PAL 13:01
PROVIDERS: ATTEND Nurse Practitioner Adult Health
DX: G89.4 Chronic pain syndrome (principal); C18.7 Malignant neoplasm of sigmoid colon; C78.7 Secondary malignant neoplasm of liver and intrahepatic bile duct; R60.0 Localized edema; M25.551 Pain in right hip; M54.50 Low back pain, unspecified; R11.0 Nausea; R53.81 Other malaise; F17.220 Nicotine dependence, chewing tobacco, uncomplicated; Z51.5 Encounter for palliative care; Z66 Do not resuscitate; Z79.01 Long term (current) use of anticoagulants; Z79.622 Long term (current) use of Janus kinase inhibitor; Z79.891 Long term (current) use of opiate analgesic; Z79.899 Other long term (current) drug therapy; Z85.46 Personal history of malignant neoplasm of prostate; Z86.711 Personal history of pulmonary embolism; Z92.3 Personal history of irradiation; Z93.3 Colostomy status; Z96.652 Presence of left artificial knee joint; Z96.642 Presence of left artificial hip joint

== ENCOUNTER → 2024-09-28 | Outpatient (CLI) | payer MEDICARE ==
[~2024-09-28] VITALS: Ht 177.8 cm; Wt 75.3 kg
[~2024-09-28] MED LIST changes: +MAGN400C PO; +MORP1CAP32 PO; +MS C15TA8 PO; +SPIR-10 PO
[2024-09-28 15:53] VITALS: BP 123/72; O2SAT 100
== END ==
LOC: M PAL 15:29
PROVIDERS: ATTEND Family Medicine
DX: Z51.5 Encounter for palliative care (principal); C18.9 Malignant neoplasm of colon, unspecified; R52 Pain, unspecified; R19.4 Change in bowel habit; Z79.891 Long term (current) use of opiate analgesic; Z79.899 Other long term (current) drug therapy; Z66 Do not resuscitate; Z88.8 Allergy status to other drugs, medicaments and biological substances; Z93.3 Colostomy status; Z98.890 Other specified postprocedural states

== ENCOUNTER → 2024-10-02 | Outpatient (CLI) | payer MEDICARE | LOC: M RAD 16:15 | PROVIDERS: ATTEND Specialist | DX: C18.9 Malignant neoplasm of colon, unspecified (principal); C78.01 Secondary malignant neoplasm of right lung; C78.02 Secondary malignant neoplasm of left lung; C78.7 Secondary malignant neoplasm of liver and intrahepatic bile duct ==

== ENCOUNTER 2024-10-09 21:17 | Emergency (ER) | payer MEDICARE ==
[2024-10-09 21:22] VITALS: BP 108/61; TEMP 99.1; O2SAT 99
== END 2024-10-10 00:06 | disposition left against medical advice (07) ==
LOC: M ED 21:17
DX: Z53.21 Procedure and treatment not carried out due to patient leaving prior to being seen by health care provider (principal)

== ENCOUNTER 2024-10-19 15:59 | Emergency (ER) | payer MEDICARE ==
[~2024-10-19] VITALS: Ht 177.8 cm; Wt 74.1 kg
[2024-10-19] MEDS ORDERED: MORP30TASA PO (16:03)
[2024-10-19] MEDS: SODIUM CHLORIDE 0.9% INJ 10 ML SYR IV PRN (16:54)
[2024-10-19] MEDS: ACETAMINOPHEN 325 MG TAB PO ONE (17:02)
[2024-10-19 17:10] LABS: BASO % 0.3 % (0.0-1.0); EOS # 0.4 10^3/uL (0.0-0.5); EOS % 2.9 % (0.0-3.0); HEMATOCRIT 31.3 % (42.0-52.0); LYMPH # 1.1 10^3/uL (1.5-5.0); LYMPH % 9.2 % (24.0-44.0); MEAN CORPUSCULAR HEMOGLOBIN 25.8 pg (27.0-33.0); MEAN CORPUSCULAR HGB CONC 31.9 g/dl (32.0-36.5); MEAN CORPUSCULAR VOLUME 80.9 fl (80.0-96.0); MONO # 0.9 10^3/uL (0.0-0.8); MONO % 7.2 % (2.0-8.0); NEUTROPHILS # 9.8 10^3/uL (1.5-8.5); NEUTROPHILS % 79.8 % (36.0-66.0); PLATELET COUNT, AUTOMATED 250 10^3/uL (150-450); RED BLOOD COUNT 3.87 10^6/uL (4.30-6.10); WHITE BLOOD COUNT 12.3 10^3/uL (4.0-10.0)
[2024-10-19] MEDS ORDERED: ISOVUE-370 76% 100ML VIAL As Ordered ONE (17:21)
[2024-10-19 17:52] LABS: ALBUMIN 2.7 G/DL (3.2-5.2); BILIRUBIN,DIRECT 0.2 MG/DL (<0.4); BILIRUBIN,TOTAL 0.5 MG/DL (0.3-1.2); TOTAL PROTEIN 6.5 G/DL (5.7-8.2)
[2024-10-19 18:02] LABS: KETONE, URINE AUTO RFX NEGATIVE (NEGATIVE); LEUKOCYTE ESTERASE UR AUTO RFX NEGATIVE (NEGATIVE); NITRITE, URINE AUTO RFX NEGATIVE (NEGATIVE); RBC, URINE AUTO RFX TNTC /HPF (0-3); SQUAM EPITHELIAL CELL UR AURFX 0 /HPF (0-6); WBC, URINE AUTO RFX 6 /HPF (0-3)
[2024-10-19] MEDS ORDERED: ERYT5OIN25 OD (19:07)
[2024-10-19] MEDS ORDERED: CEFD1CAP9 PO (19:07)
[2024-10-19] MEDS: ERYTHROMYCIN OPHTH OINT OD ONE (19:25)
[2024-10-19] MEDS: CEFDINIR 300 MG CAP (OMNICEF) PO ONE (19:25)
[2024-10-19 19:32] VITALS: BP 146/81; TEMP 99.2; O2SAT 99
[2024-10-20] MEDS ORDERED: SODIUM CHLORIDE 0.9% INJ 10 ML SYR IV SCH (09:00)
[2024-10-22] MEDS ORDERED: SPIR-10 PO (09:30)
== END 2024-10-19 19:40 | disposition home or self-care (01) ==
LOC: M ED 15:59
DX: H10.31 Unspecified acute conjunctivitis, right eye (principal); R50.9 Fever, unspecified; Z53.9 Procedure and treatment not carried out, unspecified reason; C18.9 Malignant neoplasm of colon, unspecified; C78.00 Secondary malignant neoplasm of unspecified lung; C78.7 Secondary malignant neoplasm of liver and intrahepatic bile duct; N28.1 Cyst of kidney, acquired; N20.0 Calculus of kidney; K42.9 Umbilical hernia without obstruction or gangrene; Z85.46 Personal history of malignant neoplasm of prostate; Z96.642 Presence of left artificial hip joint; Z87.442 Personal history of urinary calculi; Z79.01 Long term (current) use of anticoagulants; Z79.899 Other long term (current) drug therapy
CPT/HCPCS: 74177; 80047; 80076; 81001; 83605; 83690; 85025; 87040; 87486; 87581; 87633; 87798; 93041; 96374; 96376; 99284; J1642; Q9967